=== PATIENT | male | born 1960 | race African-American/Black ===

== ENCOUNTER 2022-05-29 16:49 | Inpatient (IN) | payer OTHER ==
[2022-05-29 19:26] VITALS: BMI 25.0
[2022-05-29] MEDS ORDERED: LOPERAMIDE HCL 2 MG CAPSULE PO PRN (20:23)
[2022-05-29] MEDS ORDERED: DICYCLOMINE HCL 10 MG CAPSULE PO PRN (20:23)
[2022-05-29] MEDS ORDERED: MAGNESIUM HYDROX 2400MG/30ML ORAL SUSPENSION 30 ML CUP PO PRN (20:23)
[2022-05-29] MEDS ORDERED: IBUPROFEN 600 MG TABLET (FP) PO PRN (20:23)
[2022-05-29] MEDS ORDERED: BENZOCAINE/MENTHOL (CHLORASEPTIC ) LOZENGE MM PRN (20:23)
[2022-05-29] MEDS ORDERED: P-EPHED 60MG/TRIPROLIDI 2.5MG TABLET PO PRN (20:23)
[2022-05-29] MEDS ORDERED: BISMUTH SUBSALICYLATE 524 MG/30 ML PO PRN (20:23)
[2022-05-29] MEDS ORDERED: NICOTINE POLACRILEX 2 MG GUM BUC PRN (20:23)
[2022-05-29] MEDS ORDERED: MAGNESIUM CITRATE 300 ML BOTTLE PO PRN (20:23)
[2022-05-29] MEDS ORDERED: NICOTINE 10 MG CARTRIDGE (INHALER) IH PRN (20:23)
[2022-05-29] MEDS ORDERED: guaiFENesin 200 MG/10 ML 10 ML UNIT-DOSE CUPS PO PRN (20:23)
[2022-05-29] MEDS ORDERED: MAG HYDROX/AL HYDROX/SIMETH 30 ML UNIT-DOSE CUP PO PRN (20:23)
[2022-05-29] MEDS ORDERED: ONDANSETRON *ODT* 4 MG TABLET SL PRN (20:23)
[2022-05-29] MEDS ORDERED: ACETAMINOPHEN 325 MG TABLET (FP) PO PRN (20:23)
[2022-05-29] MEDS ORDERED: methaDONE HCL 10 MG TABLET (FOR DETOX USE ONLY) PO ONE (22:50)
[2022-05-29] MEDS: LISINOPRIL 10 MG TABLET PO SCH (22:59)
[2022-05-29] MEDS: MELATONIN 5 MG TABLETS PO SCH (22:59)
[2022-05-29] MEDS: THIAMINE HCL 100 MG TABLET (FP) PO SCH (22:59)
[2022-05-30] MEDS ORDERED: methaDONE HCL 10 MG TABLET (FOR DETOX USE ONLY) ONE (09:54)
[2022-05-30 09:58] LABS: ALBUMIN 2.9 g/dl (3.4-5.0); CALCIUM 8.9 mg/dL (8.5-10.1)
[2022-05-30 10:01] LABS: CREATININE 1.1 mg/dL (0.55-1.3)
[2022-05-30 10:03] LABS: BILIRUBIN,TOTAL 0.5 mg/dL (0.2-1); HEMATOCRIT 38.3 % (35.4-49); HEMOGLOBIN 13.1 GM/dL (11.7-16.9); MCH 32.9 pg (25.7-33.7); MCHC 34.2 g/dl (32.0-35.9); MEAN CELL VOLUME 96.3 fl (80-96); MEAN PLT VOLUME 8.2 fl (7.5-11.1); PLATELET COUNT 151 10^3/uL (134-434); RBC 3.98 M/mm3 (4.00-5.60); RDW 15.3 % (11.9-15.9); TOT PROT 5.9 g/dl (6.4-8.2); WHITE BLOOD COUNT 5.4 K/mm3 (4.0-10.0)
[2022-05-30] MEDS: LISINOPRIL 10 MG TABLET PO SCH (10:07)
[2022-05-30] MEDS: PRENATAL VITAMINS W/ FOLIC ACID TABLET (FP) PO SCH (10:08)
[2022-05-30] MEDS: ELVITEG/COB/EMTRI/TENOF (GENVOYA) TABLET (NF) PO SCH (14:39)
[2022-05-30] MEDS: ACETAMINOPHEN 325 MG TABLET (FP) PO PRN ×2 (14:53→21:30)
[2022-05-30] MEDS: hydrOXYzine PAMOATE 25 MG CAPSULE (FP) PO PRN (20:27)
[2022-05-30] MEDS: THIAMINE HCL 100 MG TABLET (FP) PO SCH (21:30)
[2022-05-30] MEDS: MELATONIN 5 MG TABLETS PO SCH (21:30)
[2022-05-31] MEDS ORDERED: methaDONE HCL 10 MG TABLET (FOR DETOX USE ONLY) PO ONE (10:00)
[2022-05-31] MEDS: METHOCARBAMOL 500 MG TABLET PO PRN (11:40)
[2022-05-31] MEDS: LISINOPRIL 10 MG TABLET PO SCH (11:40)
[2022-05-31] MEDS: ELVITEG/COB/EMTRI/TENOF (GENVOYA) TABLET (NF) PO SCH (11:41)
[2022-05-31] MEDS: PRENATAL VITAMINS W/ FOLIC ACID TABLET (FP) PO SCH (11:41)
[2022-05-31] MEDS: ACETAMINOPHEN 325 MG TABLET (FP) PO PRN (17:19)
[2022-05-31] MEDS: hydrOXYzine PAMOATE 25 MG CAPSULE (FP) PO PRN (22:43)
[2022-05-31] MEDS: MELATONIN 5 MG TABLETS PO SCH (22:43)
[2022-05-31] MEDS: THIAMINE HCL 100 MG TABLET (FP) PO SCH (22:43)
[2022-06-01] MEDS ORDERED: methaDONE HCL 10 MG TABLET (FOR DETOX USE ONLY) ONE (09:06)
[2022-06-01] MEDS: METHOCARBAMOL 500 MG TABLET PO PRN (10:29)
[2022-06-01] MEDS: ELVITEG/COB/EMTRI/TENOF (GENVOYA) TABLET (NF) PO SCH (10:29)
[2022-06-01] MEDS: PRENATAL VITAMINS W/ FOLIC ACID TABLET (FP) PO SCH (10:29)
[2022-06-01] MEDS: IBUPROFEN 400 MG TABLET (FP) PO PRN ×2 (10:29→17:24)
[2022-06-01] MEDS: LISINOPRIL 10 MG TABLET PO SCH (10:40)
[2022-06-01] MEDS: LISINOPRIL 20 MG TABLET PO SCH (12:03)
[2022-06-01] MEDS ORDERED: cloNIDine HCL 0.1 MG TABLET PO ONE (21:48)
[2022-06-01] MEDS: THIAMINE HCL 100 MG TABLET (FP) PO SCH (22:02)
[2022-06-01] MEDS: MELATONIN 5 MG TABLETS PO SCH (22:02)
[2022-06-02] MEDS ORDERED: methaDONE HCL 10 MG TABLET (FOR DETOX USE ONLY) PO ONE (10:00)
[2022-06-02] MEDS: PRENATAL VITAMINS W/ FOLIC ACID TABLET (FP) PO SCH (10:27)
[2022-06-02] MEDS: METHOCARBAMOL 500 MG TABLET PO PRN ×2 (10:27→22:41)
[2022-06-02] MEDS: LISINOPRIL 20 MG TABLET PO SCH (10:27)
[2022-06-02] MEDS: hydrOXYzine PAMOATE 25 MG CAPSULE (FP) PO PRN ×2 (10:27→18:30)
[2022-06-02] MEDS: ELVITEG/COB/EMTRI/TENOF (GENVOYA) TABLET (NF) PO SCH (10:28)
[2022-06-02] MEDS: amLODIPine BESYLATE 5 MG TABLET (FP) PO SCH (12:23)
[2022-06-02] MEDS: THIAMINE HCL 100 MG TABLET (FP) PO SCH (22:41)
[2022-06-02] MEDS: MELATONIN 5 MG TABLETS PO SCH (22:42)
[2022-06-03 10:03] VITALS: BP 145/86; PULSE 61; TEMP 97.1
[2022-06-03] MEDS: ELVITEG/COB/EMTRI/TENOF (GENVOYA) TABLET (NF) PO SCH (11:00)
[2022-06-03] MEDS: LISINOPRIL 20 MG TABLET PO SCH (11:00)
[2022-06-03] MEDS: amLODIPine BESYLATE 5 MG TABLET (FP) PO SCH (11:00)
[2022-06-03] MEDS: PRENATAL VITAMINS W/ FOLIC ACID TABLET (FP) PO SCH (11:00)
== END 2022-06-03 12:07 | disposition other institution (70) | DRG 773 ==
LOC: YASAS 16:49 → Y6N 22:17
PROVIDERS: ADMIT Allergy & Immunology; ATTEND Surgery
PROC: HZ2ZZZZ Detoxification Services for Substance Abuse Treatment (ICD-10-PCS; principal; 2022-05-29)
DX: F11.23 Opioid dependence with withdrawal (principal); F14.20 Cocaine dependence, uncomplicated; F10.10 Alcohol abuse, uncomplicated; Z21 Asymptomatic human immunodeficiency virus [HIV] infection status; I10 Essential (primary) hypertension; Z20.822 Contact with and (suspected) exposure to COVID-19
CPT/HCPCS: 36415; 80053; 85027; 86780; C9803-CS; J0735; Q0162; U0003; U0005